=== PATIENT | male | born 1975 | race Caucasian/White ===

== ENCOUNTER 2019-08-29 11:22 | Emergency (ER) | payer OTHER, SELFPAY ==
[2019-08-29 11:25] VITALS: BP 158/93; PULSE 90; RESP 20; TEMP 36.8; O2SAT 100
[2019-08-29] MEDS: KETOROLAC 60 MG/2 ML VIAL 30 MG IV (11:56)
[2019-08-29] MEDS: SODIUM CHLORIDE 0.9% 1,000 ML 1000 ML IV (11:56)
[2019-08-29] MEDS: ONDANSETRON 4 MG/2 ML INJ IV (11:56)
[2019-08-29 12:00] VITALS: BP 140/96
--- NOTE | 2019-08-29 12:21 | ED_ITS ---
HPI - Male Genitourinary <BERNIE Luis - Last Filed: 08/29/19 22:10> General Chief complaint: Urogenital-Male Stated complaint: thinks he's passing a kidney stone Time Seen by Provider: 08/29/19 12:10 Source: patient Mode of arrival: Ambulatory Limitations: no limitations History of Present Illness HPI Narrative: This is a 44-year-old gentleman, prior smoker, who presents to ED with I think I'm passing a kidney stone with chief complain of bilateral flank/mid back pain with diffused abdominal pain. Patient has been sick for last 36 hours with nausea, vomiting, diarrhea without obvious blood in the stool or emesis. Patient was able to tolerate a bottle of Pedialyte yesterday and felt better this morning and went into work but had severe bilateral back pain and came in to ED. Reports L upper/mid back pain and R lower flank pain with nausea. Patient had feeling sweaty and feverish for 1 week with chills. Patient noticed dark concentrated urine today with nocturia 2-3 times last couple of days, denies hematuria. Patient has history of kidney stone about 2 years ago which he passed spontaneously. Patient also has history of diverticulitis. Patient denies testicular/groin pain or unusual penile discharge. Related Data Previous Rx's Medication Instructions Recorded ondansetron 4 mg PO Q6-8H PRN #10 tab 08/29/19 Allergies Allergy/AdvReac Type Severity Reaction Status Date / Time No Known Drug Allergies Allergy Verified 08/29/19 11:48 Review of Systems <BERNIE Luis - Last Filed: 08/29/19 22:10> Review of Systems Narrative: General: See HPI HEENT: Denies sinus pain, ear pain, sore throat, difficulty swallowing, dizzines s. Respiratory: Denies dyspnea, cough, wheezing, hemoptysis, sputum. Cardiovascular: Dizziness with waves of pain but not with changing in position or ambulation. Denies chest pain, palpitations, orthopnea, edema. Gastrointestinal: See HPI : See HPI Musculoskeletal: Denies weakness, joint pain or bony pain. Skin: Denies rash, skin lesions, or other. Neurologic: Denies weakness, headache, numbness, change in speech, confusion, seizures, incoordination. Psychiatric: No concerning psychosocial issues. 12-point review of systems is negative except for those stated above. Patient History <BERNIE Luis - Last Filed: 08/29/19 22:10> Medical History Diverticulitis (Acute) Kidney stone (Acute) Superior labrum [id number]-wp-[id number] (SLAP) tear of left shoulder (Acute) Surgical History History of mandibular surgery (Acute) Social History (Updated 08/29/19 @ 12:27 by BERNIE Luis) Smoking Status: Never smoker alcohol intake: current substance use type: marijuana Smoking Status: Never smoker alcohol intake frequency: 0-2 drinks per day Substance Use Type: does not use Exam <BERNIE Luis - Last Filed: 08/29/19 22:10> Narrative Exam Narrative: GEN: Alert, oriented x 3, appears to be in pain and well nourished, and in no acute distress. Head: Normal cephalic, atraumatic. No scalp or temporal tenderness, palpable mass or rash. EYES: Pupils are equal, round, and reactive to light and accommodation. Extraocular muscles are intact bilaterally. There is no subconjunctival hemorrhage, exudate and sclera non-icteric. ENT: Bilateral auditory canals and tympanic membranes clear. Hearing grossly intact. Nose without bleeding, purulent discharge or deviation. Facial sinuses nontender to palpate. Mucous membrane moist, no mucosal lesion. Throat without erythema, tonsillar hypertrophy or exudate. Uvula in midline, airway patent. Neck: Trachea in midline. No JVD, non-tender without lymphadenopathy. No masses or thyroid megaly. Supple, non-tender and no meningeal signs. CARDIAC: Normal regular rate and rhythm without murmurs, gallops, or rubs. No chest wall tenderness. No peripheral edema, cyanosis or pallor. Capillary refill is less than 2 seconds. RESPIRATORY: Lungs are clear to auscultate bilaterally. No cough, wheezes, rales, or rhonchi. No stridor, respiratory distress, increase work of breathing, or accessary muscle used. ABD: Abdomen soft, tender to palpate bilateral quadrant and epigastric region without distended. No guarding or rebound tenderness to palpate. Bowel sounds are normal in all 4 quadrants. There is no palpable masses or organomegaly. EXT: Full painless ROM of all extremities with no loss of sensation, strength, effusion or edema. SKIN: Warm, dry, normal color for patient. No erythema, lesions or rash over visible areas. BACK: Nontender without deformity or crepitance. Bilateral flank tenderness to percussion. NEUROLOGICAL: Alert and oriented to place, time and person. Sensation and motor function intact bilaterally. No facial droops, dysphasia. PSYCHIATRIC: Good judgement and reason, without hallucinations, abnormal affect or abnormal behaviors during the examination. Initial Vital Signs Initial Vital Signs: Vital Signs Temperature 98.2 F 08/29/19 11:25 Pulse Rate 90 08/29/19 11:25 Respiratory Rate 20 08/29/19 11:25 Blood Pressure 158/93 H 08/29/19 11:25 Pulse Oximetry 100 08/29/19 11:25 <Soha Byrd DO - Last Filed: 08/30/19 07:24> Initial Vital Signs Initial Vital Signs: Vital Signs Temperature 98.2 F 08/29/19 11:25 Pulse Rate 90 08/29/19 11:25 Respiratory Rate 20 08/29/19 11:25 Blood Pressure 158/93 H 08/29/19 11:25 Pulse Oximetry 100 08/29/19 11:25 Scores <BERNIE Luis - Last Filed: 08/29/19 22:10> GCS [place] coma scale eye opening: Spontaneous [place] coma scale verbal response: Orientated [place] coma scale motor response: Obey commands Baldo coma scale total score: 15 Course <BERNIE Luis - Last Filed: 08/29/19 22:10> Orders Ordered: Discontinued Medications Sodium Chloride (Normal Saline 0.9%) 1,000 mls @ 1,000 mls/hr IV BOLUS ONE Stop: 08/29/19 12:48 Last Infusion: 08/29/19 13:30 Dose: 0 mls/hr Documented by: Admin: 08/29/19 11:56 Dose: 1,000 mls/hr Documented by: COLEMAN Sodium Chloride (Normal Saline 0.9%) 1,000 mls @ 150 mls/hr IV BOLUS ONE Stop: 08/29/19 20:18 Last Infusion: 08/29/19 15:37 Dose: 0 mls/hr Documented by: Admin: 08/29/19 14:00 Dose: 150 mls/hr Documented by: COLEMAN Ketorolac Tromethamine (Toradol) 30 mg IV NOW ONE Stop: 08/29/19 11:50 Last Admin: 08/29/19 11:55 Dose: Not Given Documented by: COLEMAN Ketorolac Tromethamine (Toradol) 30 mg IV NOW ONE Stop: 08/29/19 11:54 Last Admin: 08/29/19 11:56 Dose: 30 mg Documented by: COLEMAN Morphine Sulfate (Morphine) 4 mg IV NOW ONE Stop: 08/29/19 12:59 Last Admin: 08/29/19 13:32 Dose: 4 mg Documented by: OCLEMAN Ondansetron HCl (Zofran) 4 mg IV NOW ONE Stop: 08/29/19 11:50 Last Admin: 08/29/19 11:56 Dose: 4 mg Documented by: COLEMAN Ondansetron HCl (Zofran) 4 mg IV NOW ONE Stop: 08/29/19 13:36 Last Admin: 08/29/19 13:39 Dose: Not Given Documented by: COLEMAN Pantoprazole Sodium (Protonix) 40 mg IV NOW ONE Stop: 08/29/19 15:12 Last Admin: 08/29/19 15:34 Dose: 40 mg Documented by: COLEMAN Reevaluation(s) Reevaluation #1: not improved pain after Toradol, ordering morphie Time: 12:58 Vital Signs Vital signs: Vital Signs - 8 hr 08/29/19 15:32 Pulse Rate 48 L Respiratory Rate 16 Blood Pressure [Left Arm] 131/92 H Pulse Oximetry 100 <Soha Byrd, - Last Filed: 08/30/19 07:24> Orders Ordered: Discontinued Medications Sodium Chloride (Normal Saline 0.9%) 1,000 mls @ 1,000 mls/hr IV BOLUS ONE Stop: 08/29/19 12:48 Last Infusion: 08/29/19 13:30 Dose: 0 mls/hr Documented by: Admin: 08/29/19 11:56 Dose: 1,000 mls/hr Documented by: COLEMAN Sodium Chloride (Normal Saline 0.9%) 1,000 mls @ 150 mls/hr IV BOLUS ONE Stop: 08/29/19 20:18 Last Infusion: 08/29/19 15:37 Dose: 0 mls/hr Documented by: Admin: 08/29/19 14:00 Dose: 150 mls/hr Documented by: COLEMAN Ketorolac Tromethamine (Toradol) 30 mg IV NOW ONE Stop: 08/29/19 11:50 Last Admin: 08/29/19 11:55 Dose: Not Given Documented by: COLEMAN Ketorolac Tromethamine (Toradol) 30 mg IV NOW ONE Stop: 08/29/19 11:54 Last Admin: 08/29/19 11:56 Dose: 30 mg Documented by: COLEMAN Morphine Sulfate (Morphine) 4 mg IV NOW ONE Stop: 08/29/19 12:59 Last Admin: 08/29/19 13:32 Dose: 4 mg Documented by: COLEMAN Ondansetron HCl (Zofran) 4 mg IV NOW ONE Stop: 08/29/19 11:50 Last Admin: 08/29/19 11:56 Dose: 4 mg Documented by: COLEMAN Ondansetron HCl (Zofran) 4 mg IV NOW ONE Stop: 08/29/19 13:36 Last Admin: 08/29/19 13:39 Dose: Not Given Documented by: COLEMAN Pantoprazole Sodium (Protonix) 40 mg IV NOW ONE Stop: 08/29/19 15:12 Last Admin: 08/29/19 15:34 Dose: 40 mg Documented by: COLEMAN Vital Signs Vital signs: Vital Signs - 8 hr 08/29/19 15:32 Pulse Rate 48 L Respiratory Rate 16 Blood Pressure [Left Arm] 131/92 H Pulse Oximetry 100 MDM - Male Genitourinary <BERNIE Luis - Last Filed: 08/29/19 22:10> Differential Diagnosis Differential diagnosis: Likely other (Appendicitis, diverticulitis, renal stones, kidney infection, gastroenteritis) Medical Records Attestation: I reviewed the patient's medical records. Lab Data Attestation: I reviewed the patient's lab results. Result diagrams: 08/29/19 12:25 08/29/19 12:25 Labs: Lab Results 08/29/19 08/29/19 Range/Units 12:25 12:25 WBC 5.7 (4.5-11.0) X10^3/uL RBC 4.84 (4.5-5.9) X10^6/uL Hgb 15.0 (13.5-17.5) g/dL Hct 42.5 (41-53) % MCV 87.8 (80-100) fL MCH 30.9 (26-34) PG MCHC 35.2 (30-36) % RDW 12.3 (11.6-14.8) % Plt Count 175 (150-400) X10^3/uL Neut % (Auto) 50.8 (50-75) % Lymph % (Auto) 41.3 H (25-40) % [place] % (Auto) 6.9 (3-14) % Eos % (Auto) 0.5 L (2-4) % Baso % (Auto) 0.5 (0-2) % Neut # (Auto) 3000 (8455-4748) /uL Lymph # (Auto) 2300 (0872-6308) /uL [place] # (Auto) 400 (0-900) /uL Eos # (Auto) 0 (0-450) /uL Baso # (Auto) 0 (0-100) /uL Sodium 139 (137-145) mmol/L Potassium 3.7 (3.4-5.1) mmol/L Chloride 107 (98-107) mmol/L Carbon Dioxide 24 (22-32) mmol/L BUN 14 (9-20) mg/dL Creatinine 0.90 (0.66-1.25) mg/dL Estimated GFR > 60.0 (>60) mL/min BUN/Creatinine Ratio 15.6 (6-22) Glucose 76 (70-100) mg/dL Calcium 9.1 (8.4-10.2) mg/dL Total Bilirubin 1.5 H (0.2-1.3) mg/dL AST 29 (17-59) IU/L ALT 22 (<50) IU/L Alkaline Phosphatase 44 (38-126) U/L Total Protein 6.7 (6.3-8.2) g/dL Albumin 4.3 (3.5-5.0) g/dL Globulin 2.4 (1.7-4.1) g/dL Albumin/Globulin Ratio 1.8 (1.0-2.8) Lipase 194 (23-300) U/L Urine Dip Bedside Urine Glucose Negative Bedside Urine Bilirubin - Negative Bedside Urine Ketone - Negative Urine Specific [place] 1.015 Bedside Urine Occult Blood - Negative Bedside Urine pH 7.0 Bedside Urine Protein - Negative Bedside Urine Urobilinogen - Negative Bedside Urine Nitrite - Negative Bedside Urine Leukocytes - Negative Esterase Imaging Data CT scan - abdomen: Radiologist's impression: [address] [address] [address] Scan Report Signed Patient: Rehan Mcdowell [facility]#: [id number] : 1975Acct:[id number] Age/Sex: 44 / MDate of Service: 08/29/19 Loc: ED Accession Number: [id number] Procedure: CT abdomen pelvis w con Ordering Provider: Brayan Juarez PROCEDURE: CT ABDOMEN PELVIS W CON INDICATIONS: diffused abd pain and bilateral flank pain, hx of kidney stones TECHNIQUE: After the administration of oral and intravenous contrast, 5 mm thick sections acquired from the diaphragms to the symphysis. 5 mm thick coronal and sagittal reformats were performed. For radiation dose reduction, the following was used: automated exposure control, adjustment of mA and/or kV according to patient size. COMPARISON: None. FINDINGS: Image quality: Diagnostic. ABDOMEN: Lung bases: Lung bases are clear. Heart size is normal. Solid organs: Liver is normal in size, but demonstrates decreased density when compared to the spleen. The Gallbladder is not enlarged or inflamed. Biliary system is non-dilated. Pancreas enhances normally. Spleen is normal in size and enhancement. No adrenal nodules. Kidneys are normal in size and enhancement, without hydronephrosis. Small bilateral renal calculi are evident ranging in size from approximately 2 mm to 4 mm. Peritoneum and bowel: The stomach is grossly unremarkable. The small bowel loops are nondilated. Areas of patchy wall thickening may be present. The appendix is well-visualized and normal in size without surrounding inflammation. Moderate residual stool is seen within the proximal colon. There is no free fluid, loculated fluid collection or free air. Distal colonic diverticulosis is present. Nodes and vessels: No retroperitoneal or mesenteric adenopathy. Aorta and inferior vena cava are normal in caliber. Bones: No acute fracture or dislocation is evident. No suspicious osseous lesions are identified. PELVIS: Genitourinary: Moderate thickening of the urinary bladder wall is present, which is not well distended. No bladder calculi are evident. No ureteral calculi are appreciated. The prostate is not enlarged. Miscellaneous: No inguinal hernias or adenopathy. No free fluid or loculated fluid collection is identified. Bones: No suspicious bony lesions. No acute pelvic fractures are identified. IMPRESSION: 1. No definite acute abnormality within the abdomen or pelvis. 2. Patchy areas of mild wall thickening involving several small bowel loops is of doubtful significance. However, an enteritis could potentially have this appearance. 3. Hepatic steatosis. 4. Nonobstructing bilateral renal calculi. No hydronephrosis or ureterolithiasis. 5. Urinary bladder wall thickening may be exaggerated by incomplete distention. Please correlate clinically to exclude cystitis. 7. Colonic diverticulosis without diverticulitis. No bowel obstruction. Dictated by: Ky Nelson M.D. on 08/29/2019 at 12:57 Approved by: Ky Nelson M.D. on 08/29/2019 at 13:05 [facility] Narrative Medical decision making narrative: This is a 44-year-old gentleman who presents to ED with 1 week duration of nausea, vomiting, diarrhea with bilateral flank pain and diffused abdominal discomfort. Patient denies urinary symptoms or hematuria. Patient reported subjective feeling sweaty and feverish with this symptoms. Abdominal exam was non-specific with bilateral CVA tenderness. Today's lab tests were unremarkable without leukocytosis or electrolyte imbalance. Urine was negative for blood or indication for infection. CT of abdomen/pelvis shows no acute findings. There was no renal calculi or hyd ronephrosis. Patient has a diverticulosis without diverticulitis. Patchy area of Mild small bowel wall thickening noticed appears as enteritis. Patient was treated with IV fluids and Zofran. Patient was able to tolerate fluids prior living ED. patient was medicated with Toradol and small dose of Morphine and Pantoprozole and patient felt improved. Patient was evaluated several times during ED stay. Findings and plan of care were discussed with the patient along return precautions. Patient discharged to home with Zofran and advised supportive care with hydration and to advance to bland diet. Patient verbalized understanding and agrees with the treatment plan. <Soha Byrd, - Last Filed: 12/12/19 07:24> Lab Data Labs: Lab Results 08/29/19 08/29/19 Range/Units 12:25 12:25 WBC 5.7 (4.5-11.0) X10^3/uL RBC 4.84 (4.5-5.9) X10^6/uL Hgb 15.0 (13.5-17.5) g/dL Hct 42.5 (41-53) % MCV 87.8 (80-100) fL MCH 30.9 (26-34) PG MCHC 35.2 (30-36) % RDW 12.3 (11.6-14.8) % Plt Count 175 (150-400) X10^3/uL Neut % (Auto) 50.8 (50-75) % Lymph % (Auto) 41.3 H (25-40) % [place] % (Auto) 6.9 (3-14) % Eos % (Auto) 0.5 L (2-4) % Baso % (Auto) 0.5 (0-2) % Neut # (Auto) 3000 (9555-4634) /uL Lymph # (Auto) 2300 (1454-9090) /uL [place] # (Auto) 400 (0-900) /uL Eos # (Auto) 0 (0-450) /uL Baso # (Auto) 0 (0-100) /uL Sodium 139 (137-145) mmol/L Potassium 3.7 (3.4-5.1) mmol/L Chloride 107 (98-107) mmol/L Carbon Dioxide 24 (22-32) mmol/L BUN 14 (9-20) mg/dL Creatinine 0.90 (0.66-1.25) mg/dL Estimated GFR > 60.0 (>60) mL/min BUN/Creatinine Ratio 15.6 (6-22) Glucose 76 (70-100) mg/dL Calcium 9.1 (8.4-10.2) mg/dL Total Bilirubin 1.5 H (0.2-1.3) mg/dL AST 29 (17-59) IU/L ALT 22 (<50) IU/L Alkaline Phosphatase 44 (38-126) U/L Total Protein 6.7 (6.3-8.2) g/dL Albumin 4.3 (3.5-5.0) g/dL Globulin 2.4 (1.7-4.1) g/dL Albumin/Globulin Ratio 1.8 (1.0-2.8) Lipase 194 (23-300) U/L Urine Dip Bedside Urine Glucose Negative Bedside Urine Bilirubin - Negative Bedside Urine Ketone - Negative Urine Specific [place] 1.015 Bedside Urine Occult Blood - Negative Bedside Urine pH 7.0 Bedside Urine Protein - Negative Bedside Urine Urobilinogen - Negative Bedside Urine Nitrite - Negative Bedside Urine Leukocytes - Negative Esterase Discharge Plan Departure Patient Disposition: Home Clinical Impression: Gastroenteritis, Enteritis Discharge Date/Time: 08/29/19 15:44 Instructions: DI for Viral Gastroenteritis -- Adult Activity Restrictions/Additional Instructions: You have been diagnosed with [gastroenteritis and possibly enteritis per CT test today. No kidney stone, diverticulitis, or acute abnormalty seen today. Your lab tests are unremarkable today. You're hydrated with IV fluid and IV anti nausea medications Zofran and pain medication. ]. What to do: *Take your medications as directed. Please take anti nausea medications Zofran as needed and hydrate with clear liquid and advance to BRAT diet as you can tolerate this. *Follow up with your primary care provider in 2-3 days, call for an appointment. Let them know you were seen in the ED and that we asked you to be seen in follow up. *Return to ED if you have any new, worsening, or concerning symptoms, such as [fever, chest pain, breathing difficulty, unable to tolerate fluids, worsening pain, blood in your stool or vomit, or any acute concerns]. Prescriptions: New ondansetron 4 mg tablet,disintegrating 4 mg PO Q6-8H PRN (Reason: nausea and vomiting) Qty: 10 RF: 0
[2019-08-29 12:33] LABS: Add Manual Diff / Slide Review NO
[2019-08-29 12:51] LABS: Alanine Aminotransferase 22 IU/L (<50); Albumin 4.3 g/dL (3.5-5.0); Albumin Globulin Ratio 1.8 (1.0-2.8); Alkaline Phosphatase 44 U/L (38-126); Aspartate Aminotransferase 29 IU/L (17-59); BUN Creatinine Ratio 15.6 (6-22); Bilirubin Total 1.5 mg/dL (0.2-1.3); Blood Urea Nitrogen 14 mg/dL (9-20); Calcium 9.1 mg/dL (8.4-10.2); Carbon Dioxide 24 mmol/L (22-32); Chloride 107 mmol/L (98-107); Estimated Glomerular Filt Rate > 60.0 mL/min (>60); Globulin 2.4 g/dL (1.7-4.1); Glucose 76 mg/dL (70-100); HEMOLYSIS 21 (0-50); Lipase 194 U/L (23-300); Potassium 3.7 mmol/L (3.4-5.1); Sodium 139 mmol/L (137-145); Total Protein 6.7 g/dL (6.3-8.2)
[2019-08-29 13:00] VITALS: BP 125/86
--- NOTE | 2019-08-29 13:15 | DI.CT.S_ITS ---
PROCEDURE: CT ABDOMEN PELVIS W CON INDICATIONS: diffused abd pain and bilateral flank pain, hx of kidney stones TECHNIQUE: After the administration of oral and intravenous contrast, 5 mm thick sections acquired from the diaphragms to the symphysis. 5 mm thick coronal and sagittal reformats were performed. For radiation dose reduction, the following was used: automated exposure control, adjustment of mA and/or kV according to patient size. COMPARISON: None. FINDINGS: Image quality: Diagnostic. ABDOMEN: Lung bases: Lung bases are clear. Heart size is normal. Solid organs: Liver is normal in size, but demonstrates decreased density when compared to the spleen. The Gallbladder is not enlarged or inflamed. Biliary system is non-dilated. Pancreas enhances normally. Spleen is normal in size and enhancement. No adrenal nodules. Kidneys are normal in size and enhancement, without hydronephrosis. Small bilateral renal calculi are evident ranging in size from approximately 2 mm to 4 mm. Peritoneum and bowel: The stomach is grossly unremarkable. The small bowel loops are nondilated. Areas of patchy wall thickening may be present. The appendix is well-visualized and normal in size without surrounding inflammation. Moderate residual stool is seen within the proximal colon. There is no free fluid, loculated fluid collection or free air. Distal colonic diverticulosis is present. Nodes and vessels: No retroperitoneal or mesenteric adenopathy. Aorta and inferior vena cava are normal in caliber. Bones: No acute fracture or dislocation is evident. No suspicious osseous lesions are identified. PELVIS: Genitourinary: Moderate thickening of the urinary bladder wall is present, which is not well distended. No bladder calculi are evident. No ureteral calculi are appreciated. The prostate is not enlarged. Miscellaneous: No inguinal hernias or adenopathy. No free fluid or loculated fluid collection is identified. Bones: No suspicious bony lesions. No acute pelvic fractures are identified. IMPRESSION: 1. No definite acute abnormality within the abdomen or pelvis. 2. Patchy areas of mild wall thickening involving several small bowel loops is of doubtful significance. However, an enteritis could potentially have this appearance. 3. Hepatic steatosis. 4. Nonobstructing bilateral renal calculi. No hydronephrosis or ureterolithiasis. 5. Urinary bladder wall thickening may be exaggerated by incomplete distention. Please correlate clinically to exclude cystitis. 7. Colonic diverticulosis without diverticulitis. No bowel obstruction. Dictated by: Ky Nelson M.D. on 08/29/2019 at 12:57 Approved by: Ky Nelson M.D. on 08/29/2019 at 13:05
[2019-08-29] MEDS: MORPHINE 4 MG/ML INJ IV (13:32)
[2019-08-29] MEDS: ONDANSETRON 4 MG/2 ML INJ (13:38)
[2019-08-29] MEDS: SODIUM CHLORIDE 0.9% 1,000 ML 150 ML IV (14:00)
[2019-08-29 14:46] LABS: Red Blood Cell Count 4.84 X10^6/uL (4.5-5.9); White Blood Cell Count 5.7 X10^3/uL (4.5-11.0)
[2019-08-29 14:47] LABS: Hematocrit 42.5 % (41-53)
[2019-08-29 14:48] LABS: Mean Corpuscular HGB Conc 35.2 % (30-36); Mean Corpuscular Hemoglobin 30.9 PG (26-34); Mean Corpuscular Volume 87.8 fL (80-100)
[2019-08-29 14:49] LABS: Neutrophils Percent Auto 50.8 % (50-75); Platelet Count 175 X10^3/uL (150-400); Red Cell Distribution Width 12.3 % (11.6-14.8)
[2019-08-29 14:50] LABS: Lymphocytes Percent Auto 41.3 % (25-40)
[2019-08-29 14:51] LABS: Eosinophils Percent Auto 0.5 % (2-4); Monocytes Percent Auto 6.9 % (3-14)
[2019-08-29 14:52] LABS: Basophils Percent Auto 0.5 % (0-2)
[2019-08-29 14:53] LABS: Eosinophils Absolute Auto 0 /uL (0-450)
[2019-08-29 14:54] LABS: Basophils Absolute Auto 0 /uL (0-100); Lymphocytes Absolute Auto 2300 /uL (1100-4500); Neutrophils Absolute Auto 3000 /uL (1500-7000)
[2019-08-29 14:55] LABS: Monocytes Absolute Auto 400 /uL (0-900)
[2019-08-29 15:32] VITALS: BP 131/92; PULSE 48; RESP 16; O2SAT 100
[2019-08-29] MEDS: PANTOPRAZOLE 40 MG VIAL IV (15:34)
== END 2019-08-29 15:44 | disposition home or self-care (01) ==
PROVIDERS: Emergency Provider Nurse Practitioner Family
DX: K52.9 Noninfective gastroenteritis and colitis, unspecified (principal); Z87.442 Personal history of urinary calculi; R10.9 Unspecified abdominal pain
CPT/HCPCS: 36415; 74177; 80053; 81003; 83690; 85025; 96361; 96374; 96375; 96376; 99282; 99285; C9113; J1885; J2270; J2405; Q9967

== ENCOUNTER 2019-08-31 08:46 | Emergency (ER) | payer OTHER, SELFPAY ==
[2019-08-31 09:08] VITALS: BP 151/97; PULSE 58; RESP 18; TEMP 36.5; O2SAT 98; BMI 27.2
--- NOTE | 2019-08-31 09:37 | ED.ABDPAIN ---
HPI - Abdominal Pain General Chief Complaint: Abdominal Pain Stated Complaint: hx of divertic./n&v/pain x3 days/here 08/29 Time Seen by Provider: 08/31/19 09:29 Source: patient Mode of arrival: Family Vehicle Limitations: no limitations History of Present Illness HPI narrative: Patient is a 44-year-old male who presents with abdominal pain. He is a history of GI issues and diverticulitis for who he sees GI in [facility]. He moved here in March and has not yet been established. He was seen evaluated here 2 days ago for the same. He had blood work and CT which did not show any sign of kidney stone or diverticulitis. He has continued to have increased intense lower abdominal pain bilaterally more on the left lower quadrant than the right. He has not taken anything except for marijuana for pain. He says the pain last night was so bad he was sweating. He says he has lost 10-15 lb in last 10 days due to inability to eat. He threw up 1 or 2 times yesterday. He is not having bowel movements but is is having gas. Denies any fever or chills. MD complaint: abdominal pain Quality: cramping and stabbing Radiation: none Migration to: no migration Relieving factors: nothing Exacerbating factors: eating, bowel movement and movement Related Data Previous Rx's Medication Instructions Recorded ondansetron 4 mg PO Q6-8H PRN #10 tab 08/29/19 ciprofloxacin HCl [Cipro] 500 mg PO BID #14 tab 08/31/19 hydrocodone-acetaminophen [[place]] 1 tab PO Q6H PRN #6 tab 08/31/19 metronidazole [Flagyl] 500 mg PO TID #21 tab 08/31/19 Allergies Allergy/AdvReac Type Severity Reaction Status Date / Time No Known Drug Allergies Allergy Verified 08/31/19 09:15 Review of Systems Review of Systems Narrative: GENERAL: Denies chills, fatigue, malaise, fever, sweats, travel HEENT: Denies sinus pain, ear pain, sore throat, difficulty swallowing, neck pain RESPIRATORY: Denies dyspnea, cough, wheezing, hemoptysis, sputum. CARDIOVASCULAR: Denies chest pain, palpitations, orthopnea, edema GASTROINTESTINAL: See HPI : Denies dysuria, frequency, incontinence, hematuria, urinary retention, flank pain. MUSCULOSKELETAL: Denies weakness, joint pain, or bony pain SKIN: No rash, no erythema, no pruritus NEUROLOGIC: Denies weakness, dizziness, headache, numbness, change in speech, confusion PSYCHIATRIC: No concerning psychosocial issues. 12 point review of systems is negative except for those stated above and HPI Patient History Medical History Diverticulitis (Acute) Kidney stone (Acute) Superior labrum [id number] (SLAP) tear of left shoulder (Acute) Surgical History History of mandibular surgery (Acute) Social History Smoking Status: Never smoker alcohol intake: current substance use type: marijuana Smoking Status: Never smoker alcohol intake frequency: 0-2 drinks per day Substance Use Type: does not use Exam Initial Vital Signs Initial Vital Signs: Vital Signs Temperature 97.7 F 08/31/19 09:08 Pulse Rate 58 L 08/31/19 09:08 Respiratory Rate 18 08/31/19 09:08 Blood Pressure 151/97 H 08/31/19 09:08 Pulse Oximetry 98 08/31/19 09:08 GENERAL: Alert young male appears in pain and in no acute distress. HEENT: Head atraumatic,EOMI, pupils reactive, face symmetric CARDIOVASCULAR: Regular rate and rhythm without murmurs, rubs or gallops. RESPIRATORY: Breath sounds equal bilaterally, no wheezes rales or rhonchi. ABDOMEN: Soft, tender across lower abdomen more left lower quadrant than right no flank pain EXTREMITIES: Normal range of motion, no clubbing or edema. Neurovascularly intact NEUROLOGICAL: Alert and oriented x4.Normal gait and speech. Cranial nerves II through XII grossly intact. SKIN: Warm, dry, no laceration, no petechiae, no rashes or lesions. Course Orders Ordered: ED Orders 08/31/19 09:39 XR abdomen min 2V Stat 08/31/19 10:10 Complete Blood Count AUTO DIFF Stat Comprehensive Metabolic Panel Stat Lipase Stat 08/31/19 10:35 Urine Culture Stat Urine Microscopic Stat Discontinued Medications Sodium Chloride (Normal Saline 0.9%) 1,000 mls @ 1,000 mls/hr IV CONT TORRES Last Infusion: 08/31/19 11:21 Dose: 0 mls/hr Documented by: Admin: 08/31/19 10:25 Dose: 1,000 mls/hr Documented by: QUIN Ketorolac Tromethamine (Toradol) 30 mg IV NOW ONE Stop: 08/31/19 09:39 Last Admin: 08/31/19 10:25 Dose: 30 mg Documented by: QUIN Ondansetron HCl (Zofran) 4 mg IV NOW ONE Stop: 08/31/19 09:39 Last Admin: 08/31/19 10:25 Dose: 4 mg Documented by: QUIN Vital Signs Vital signs: Vital Signs - 8 hr 08/31/19 09:08 08/31/19 10:30 08/31/19 11:25 Temperature 97.7 F 97.7 F Pulse Rate 58 L 63 65 Respiratory Rate 18 18 18 Blood Pressure 151/97 H Blood Pressure [Left Arm] 130/87 132/94 H Pulse Oximetry 98 99 99 MDM - Abdominal Pain Differential Diagnosis Differential diagnosis: Likely abdominal pain, acute appendicitis, calculus of kidney, constipation, diverticulitis, gastroenteritis, pancreatitis and small bowel obstruction Medical Records Attestation: I reviewed the patient's medical records. Lab Data Attestation: I reviewed the patient's lab results. Result diagrams: 08/31/19 10:10 08/31/19 10:10 Labs: Lab Results 08/31/19 08/31/19 08/31/19 Range/Units 10:10 10:10 10:35 WBC 5.9 (4.5-11.0) X10^3/uL RBC 5.07 (4.5-5.9) X10^6/uL Hgb 15.8 (13.5-17.5) g/dL Hct 44.3 (41-53) % MCV 87.4 (80-100) fL MCH 31.1 (26-34) PG MCHC 35.6 (30-36) % RDW 12.6 (11.6-14.8) % Plt Count 192 (150-400) X10^3/uL Neut % (Auto) 58.7 (50-75) % Lymph % (Auto) 32.6 (25-40) % Coal % (Auto) 6.7 (3-14) % Eos % (Auto) 1.4 L (2-4) % Baso % (Auto) 0.6 (0-2) % Neut # (Auto) 3400 (7689-4717) /uL Lymph # (Auto) 1900 (7487-8381) /uL Coal # (Auto) 400 (0-900) /uL Eos # (Auto) 100 (0-450) /uL Baso # (Auto) 0 (0-100) /uL Sodium 138 (137-145) mmol/L Potassium 3.5 (3.4-5.1) mmol/L Chloride 102 (98-107) mmol/L Carbon Dioxide 30 (22-32) mmol/L BUN 9 (9-20) mg/dL Creatinine 0.90 (0.66-1.25) mg/dL Estimated GFR > 60.0 (>60) mL/min BUN/Creatinine Ratio 10.0 (6-22) Glucose 96 (70-100) mg/dL Calcium 9.6 (8.4-10.2) mg/dL Total Bilirubin 1.6 H (0.2-1.3) mg/dL AST 29 (17-59) IU/L ALT 31 (<50) IU/L Alkaline Phosphatase 43 (38-126) U/L Total Protein 7.5 (6.3-8.2) g/dL Albumin 4.7 (3.5-5.0) g/dL Globulin 2.8 (1.7-4.1) g/dL Albumin/Globulin Ratio 1.7 (1.0-2.8) Lipase 420 H D (23-300) U/L Urine RBC 0-1/hpf (0-5/HPF) Urine WBC 0-1/hpf (0-5/HPF) Urine Bacteria Occasional (0-1) (None) Ur Culture Indicated? Specimen cultured Point of care testing: Urine Dip Bedside Urine Glucose Negative Bedside Urine Bilirubin - Negative Bedside Urine Ketone - Negative Urine Specific [place] 1.015 Bedside Urine Occult Blood - Negative Bedside Urine pH 7.0 Bedside Urine Protein - Negative Bedside Urine Urobilinogen - Negative Bedside Urine Nitrite - Negative Bedside Urine Leukocytes +/- 15 Esterase Imaging Data Abdominal x-ray: Radiologist's impression: PROCEDURE: XR ABDOMEN MIN 2V INDICATIONS: ab pain TECHNIQUE: 2 views of the abdomen were acquired. COMPARISON: None. FINDINGS: Surgical changes and devices: None. Bowel: No pneumoperitoneum. The bowel gas pattern is normal. Soft tissues: No masses; visualized solid organ contours appear normal in size. Punctate calcification are present overlying the renal shadows bilaterally. Bones: No suspicious bony abnormalities. IMPRESSION: Punctate calcifications identified overlying both the left and right renal shadows. Dictated by: Hazel Barcenas M.D. on 08/31/2019 at 9:55 MDM Narrative Medical decision making narrative: Patient has intensifying pain. He had diverticulosis noted on CT 2 days ago he is afebrile no leukocytosis. X-ray does not show any abnormality except for punctate kidney stones. His the patient has a history of diverticulitis he thinks that this is what it is. At this time due to intensifying pain will put him on a trial run of antibiotics. He is requesting something stronger for pain. I will give him just a few tablets of his [place]. He says last night he wanted to because the pain was so intense. He has no active thoughts of suicide and denies any suicidal ideation. He is able to contract for safety. Discharge Plan Departure Patient Disposition: Home Clinical Impression: Diverticulitis Discharge Date/Time: 08/31/19 11:28 Instructions: DI for Diverticulitis Activity Restrictions/Additional Instructions: *You have been diagnosed with diverticulitis *What to do: At this time blood work x-ray are reassuring however due to your intense pain will do a trial run of antibiotics for diverticulitis. Her CT scan 2 days ago did show diverticulosis which not infection. *Continue to take medications as directed Cipro 500 mg twice a day for 7 days Flagyl 500 mg 3 times a day for 7 days [place] 1 tablet every 6 hours only as needed for severe pain *Follow up with your primary care provider in 2-3 days *Return to ER if you should have increasing abdominal pain bloody stools vomiting fever or any new, worsening or concerning symptoms CONTROLLED SUBSTANCE DISCHARGE (Narcotoic/benzodiazepine/Flexeril/Phenergan) 1. You have been prescribed narcotic medications, it does have acetaminophen/Tylenol/paracetamol in it so do not take extra Tylenol or Tylenol containing products 2. Please understand that we cannot provide further refills of narcotics, benzodiazepines or controlled substances through the ED and her pain management will need to be through your provider. 3. While on these medications you cannot drive or operate heavy machinery. 4. You cannot sign legal documents or perform any duties such as this. 5. As long as you're taking opiate pain medications he should also be taking a stool softener such as Colace, Dulcolax, MiraLAX or prune juice, to help avoid constipation. Prescriptions: New ciprofloxacin HCl [Cipro] 500 mg tablet 500 mg PO BID Qty: 14 RF: 0 metronidazole [Flagyl] 500 mg tablet 500 mg PO TID Qty: 21 RF: 0 hydrocodone-acetaminophen [[place]] 5-325 mg tablet 1 tab PO Q6H PRN (Reason: pain) Qty: 6 RF: 0 No Action ondansetron 4 mg tablet,disintegrating 4 mg PO Q6-8H PRN (Reason: nausea and vomiting) Qty: 10 RF: 0 Referrals: [facility] [Outside] Gerry Chirinos MD [Non-Staff] -
[2019-08-31 10:17] LABS: Add Manual Diff / Slide Review NO; Basophils Absolute Auto 0 /uL (0-100); Basophils Percent Auto 0.6 % (0-2); Eosinophils Absolute Auto 100 /uL (0-450); Eosinophils Percent Auto 1.4 % (2-4); Hematocrit 44.3 % (41-53); Hemoglobin 15.8 g/dL (13.5-17.5); Lymphocytes Absolute Auto 1900 /uL (1100-4500); Lymphocytes Percent Auto 32.6 % (25-40); Mean Corpuscular HGB Conc 35.6 % (30-36); Mean Corpuscular Hemoglobin 31.1 PG (26-34); Mean Corpuscular Volume 87.4 fL (80-100); Monocytes Absolute Auto 400 /uL (0-900); Monocytes Percent Auto 6.7 % (3-14); Neutrophils Absolute Auto 3400 /uL (1500-7000); Neutrophils Percent Auto 58.7 % (50-75); Platelet Count 192 X10^3/uL (150-400); Red Blood Cell Count 5.07 X10^6/uL (4.5-5.9); Red Cell Distribution Width 12.6 % (11.6-14.8); White Blood Cell Count 5.9 X10^3/uL (4.5-11.0)
[2019-08-31] MEDS: KETOROLAC 60 MG/2 ML VIAL 30 MG IV (10:25)
[2019-08-31] MEDS: SODIUM CHLORIDE 0.9% 1,000 ML 1000 ML IV (10:25)
[2019-08-31] MEDS: ONDANSETRON 4 MG/2 ML INJ IV (10:25)
[2019-08-31 10:26] LABS: Alanine Aminotransferase 31 IU/L (<50); Albumin 4.7 g/dL (3.5-5.0); Albumin Globulin Ratio 1.7 (1.0-2.8); Alkaline Phosphatase 43 U/L (38-126); Aspartate Aminotransferase 29 IU/L (17-59); Bilirubin Total 1.6 mg/dL (0.2-1.3); Blood Urea Nitrogen 9 mg/dL (9-20); Calcium 9.6 mg/dL (8.4-10.2); Carbon Dioxide 30 mmol/L (22-32); Chloride 102 mmol/L (98-107); Estimated Glomerular Filt Rate > 60.0 mL/min (>60); Globulin 2.8 g/dL (1.7-4.1); Glucose 96 mg/dL (70-100); HEMOLYSIS < 15 (0-50); Lipase 420 U/L (23-300); Potassium 3.5 mmol/L (3.4-5.1); Sodium 138 mmol/L (137-145); Total Protein 7.5 g/dL (6.3-8.2)
[2019-08-31 10:30] VITALS: BP 130/87; PULSE 63; RESP 18; O2SAT 99
[2019-08-31 11:25] VITALS: BP 132/94; PULSE 65; RESP 18; TEMP 36.5; O2SAT 99
[2019-08-31 11:25] LABS: Bacteria Urine Occasional (0-1); RBC Urine 0-1/HPF (0-5/HPF); WBC Urine 0-1/HPF (0-5/HPF)
[2019-08-31 11:26] LABS: Culture Indicated Urine Specimen Cultured
== END 2019-08-31 11:28 | disposition home or self-care (01) ==
PROVIDERS: Emergency Provider Emergency Medicine
DX: K57.92 Diverticulitis of intestine, part unspecified, without perforation or abscess without bleeding (principal)
CPT/HCPCS: 36415; 74019; 80053; 81003; 81015; 83690; 85025; 87086; 96374; 96375; 99284; J1885; J2405